=== PATIENT | male | born 1980 | race Two or more races ===

== ENCOUNTER 2017-04-02 19:56 | Emergency (ER) | payer OTHER ==
[~2017-04-02] VITALS: Ht 185.4 cm; Wt 61.2 kg
[2017-04-02 20:12] VITALS: BP 125/77
== END 2017-04-02 20:31 | disposition home or self-care (01) ==
LOC: ER 20:04
DX: L98.8 Other specified disorders of the skin and subcutaneous tissue (principal)
CPT/HCPCS: 99281; A4606; Z7610; Z7502